=== PATIENT | female | born 1985 | race Caucasian/White ===

== ENCOUNTER → 2016-06-21 | Outpatient (CLI) | payer BC ==
--- NOTE | 2016-06-21 13:27 | MM ---
Reason for exam: clinical finding. Indicated problem(s): palpable abnormality in the right breast. Physical Findings: Nurse Summary: 1cm nodule at 12 o'clock and a 2cm nodule at 9 o'clock in the right breast (nurse rosalio). MG 3D Diag Mammo W/Cad ARETHA Bilateral CC and MLO view(s) were taken. There are scattered fibroglandular densities. Some asymmetric density is seen behind the right nipple without any discrete mass. A palpable marker is at the right nipple and right upper outer quadrant. No significant mass, calcifications or other abnormality is seen. These results were verbally communicated with the patient and result sheet given to the patient on 06/21/16. ASSESSMENT: Incomplete: need additional imaging evaluation, BI-RAD 0 RECOMMENDATION: Ultrasound of the right breast. (targeted to palpables x 2)
--- NOTE | 2016-06-21 13:31 | USB ---
Reason for exam: additional evaluation requested from abnormal screening. US Breast Limited RT Right breast ultrasound demonstrates a 12 x 7 x 13mm solid, hypoechoic, vascular lesion at 2 o'clock at nipple. Patient reports that this palpable area has decreased in size and is no longer painful. This may represent an area of infection/inflammation and should be reassessed in 6 months. These results were verbally communicated with the patient and result sheet given to the patient on 06/21/16. ASSESSMENT: Probably benign, BI-RAD 3 RECOMMENDATION: Ultrasound of the right breast in 3 months. Manage on a clinical basis with regard to any potential sites of infection.
== END | disposition home or self-care (01) ==
LOC: RADMAMWWP 10:13
PROVIDERS: ATTEND Internal Medicine
DX: N63 Unspecified lump in breast (principal); R92.2 Inconclusive mammogram; R92.8 Other abnormal and inconclusive findings on diagnostic imaging of breast
CPT/HCPCS: 76642; G0204; G0279

== ENCOUNTER → 2024-05-26 | Outpatient (CLI) | payer BC ==
--- NOTE | 2024-05-26 11:56 | CT ---
EXAMINATION TYPE: CT iac wo con CT DLP: 150 mGycm, Automated exposure control for dose reduction was used. DATE OF EXAM: 05/26/2024 11:46 AM INDICATION: Patient age:Female; 39 years old; Reason for study: H93.19 TINNITUS, UNSPECIFIED EAR R42 DIZZY GIDDY; [facility]. COMPARISON: CT brain 05/01/2012. TECHNIQUE: Multiple thin axial images were obtained through the temporal bones and internal auditory canals. Additional coronal reformatted images were obtained. No IV contrast was utilized. FINDINGS: Right Temporal Bone: External Ear: The external auditory canal is unremarkable, The tympanic membrane is present and unrem arkable. Middle Ear: The ossicles demonstrate a normal appearance. Prussak's space is clear and the scutum i s intact. The tegmen tympani is intact. Inner Ear: Cochlea, vestibule and semi circular canals are unremarkable. No evidence of carotid robles l dehiscence. Two and a half turns of the cochlea are identified. The vestibular aqueduct is not enl arged. Mastoid Air Cells: There is some opacification in the right mastoid air cells. There is some erosive changes involving the lateral aspect of the superior mastoid without adjacent air cell opacification (series 4, which 99 and 108). The tegmen mastoideum is intact. The aditus ad antrum is clear. Internal Auditory Canal: The internal auditory canal is unremarkable. Left Temporal Bone: External Ear: The external auditory canal is unremarkable, The tympanic membrane is present and unrem arkable. Middle Ear: The ossicles demonstrate a normal appearance. Prussak's space is clear and the scutum i s intact. There is no evidence of osseous erosion and the tegmen tympani is intact. Inner Ear: Cochlea, vestibule and semi circular canals are unremarkable. No evidence of carotid robles l dehiscence. Two and a half turns of the cochlea are identified. The vestibular aqueduct is not enl arged. Mastoid Air Cells: The mastoid air cells are clear. The tegmen mastoideum is intact. The aditus ad an trum is clear. Internal Auditory Canal: The internal auditory canal is unremarkable. Minimal mucosal thickening of the inferior bilateral maxillary sinuses. Incidental incomplete fusion of posterior arch of C1. IMPRESSION: Mild right mastoid effusion with regions of erosive change within the lateral aspect of the right mas toid air cells. No surrounding soft tissue inflammatory changes. Clinically correlate for mastoiditis . [facility], , 05/26/2024 11:54 AM
== END | disposition home or self-care (01) ==
LOC: RADCTMAIN 11:32
PROVIDERS: ATTEND Otolaryngology
DX: H93.19 Tinnitus, unspecified ear (principal); H70.91 Unspecified mastoiditis, right ear; R42 Dizziness and giddiness
CPT/HCPCS: 70480

== ENCOUNTER → 2024-11-16 | Day surgery (SDC) | payer BC ==
[2024-11-12 10:20] VITALS: BMI 54.9
[2024-11-16] MEDS: IV FLUID CONTINUATION 1,000 ML IV ONE (08:36)
[2024-11-16 09:01] VITALS: BP 130/85; PULSE 86; RESP 16; TEMP 98.1
[2024-11-16] MEDS: SODIUM CHLORIDE 0.9% 1,000 ML IV SCH (09:01)
--- NOTE | 2024-11-16 13:58 | P.EPPROC ---
- EP Procedure Note Electrophysiology Procedure Note: Diagnosis Recurrent presyncope Twelve-lead EKG shows sinus mechanism normal [place] narrow QRS normal ST segments. Early repolarization abnormality consistent with normal variant Tilt table test per protocol Baseline blood pressure 134/72 mmHg Baseline heart rate 76 beats minute Patient was tilted upright at an angle of 70 degrees per protocol Mild increase in heart rate to about above 100 bpm. This remains sustained throughout the rest of the procedure Blood pressure was normal Patient complained of lightheadedness, dizziness, pounding in the chest and feeling shaky When the patient was laid supine heart rate came down to the 70s Impression Normal twelve-lead EKG Postural tachycardia with symptoms as described above No evidence for secondary neurocardiogenic phenomena
== END ==
LOC: CATHEP 08:15
PROVIDERS: ATTEND Internal Medicine Clinical Cardiac Electrophysiology
DX: R55 Syncope and collapse (principal); I10 Essential (primary) hypertension; E78.2 Mixed hyperlipidemia; R00.0 Tachycardia, unspecified; R00.2 Palpitations; R07.89 Other chest pain; R06.00 Dyspnea, unspecified; R42 Dizziness and giddiness; E66.9 Obesity, unspecified; F17.210 Nicotine dependence, cigarettes, uncomplicated; Z79.899 Other long term (current) drug therapy
CPT/HCPCS: 81025; 93660